=== PATIENT | male | born 1950 | race Caucasian/White ===

== ENCOUNTER → 2020-10-15 | Day surgery (SDC) | payer MEDICARE, OTHER ==
[~2020-10-15] MED LIST: ASPI-630 PO; CHLO25TA9 PO; IPRATRPIUM/ALBUTEROL 0.5/2.5MG 3 ML NEBU. NEB PRN; IV RINGERS SOLUTION,LACTATED 1,000 ML IV SCH; LIDOCAINE 2% PF 5 ML VIAL. ONE; LIPITOR80 MG PO; LOSA100T14 PO; MIDAZOLAM HCL PF 2 MG/2 ML VIAL. IV ONE; ONDANSETRON PF 4 MG/2 ML VIAL. IV PRN; PROPOFOL 10,000 MCG/ML (20ML) VIAL IV ONE
[2020-10-15 11:00] VITALS: BP 127/77
--- NOTE | 2020-10-17 12:08 | PATHOLOGY ---
[facility] Accession Number: [id number] . 01 Material submitted: . PART A: colon - ASCENDING COLON POLYP BIOPSY. Modifiers: ascending PART B: hepatic flexure - HEPATIC FLEXURE HOT SNARE POLYP PART C: rectum - RECTAL POLYP BIOPSY . 01 Clinical history: . COLONOSCOPY HISTORY OF POLYPS . 02 Diagnosis: A. Colon biopsy, ascending colon polyp: - Diminutive tubular adenoma. . B. Colon biopsy, hepatic flexure polyp: - Tubular adenoma. . C. Colorectal biopsy, rectal polyp: - Hyperplastic polyp. LB 10/17/2020 0945 Local . 02 Comment: There is no high grade dysplasia or evidence of malignancy. (JPM/db; 10/17/2020) . 02 Electronically signed: . Nestor Contreras MD, Pathologist NPI- [id number] . 01 Gross description: . A. Received in formalin labeled "Dave Snow, ascending colon polyp" is a fragment of randle-brown soft tissue measuring 0.7 x 0.4 x 0.3 cm. The specimen is submitted entirely in A1. . B. Received in formalin labeled "Gwendolyn, Dave hot snare, hepatic flexure polyp" is a fragment of randle-brown soft tissue measuring 0.9 x 0.5 x 0.4 cm. The surgical resection margin is inked black. The specimen is submitted entirely in B1. . C. Received in formalin labeled "Gwendolyn, Dave rectal polyp biopsy" is a fragment of randle-brown soft tissue measuring 0.4 x 0.3 x 0.3 cm. The specimen is submitted entirely in C1.([facility]; 10/16/2020) . GZA/GZA 10/16/2020 1703 Local . 02 Pathologist provided ICD-10: D12.2, D12.3, K62.1 . 02 CPT . 119817, 732421, 442000 Specimen Comment: A courtesy copy of this report has been sent to [phone], [phone] Specimen Comment: [id number] Specimen Comment: Report sent to / DR PHELAN Performed at: [address] [facility] [address], [place] [id number] MD Elvin Lobo MD Phone: [phone] Performed at: 02 [facility] [place] [address] [place], [place] [id number] MD Nestor Contreras MD Phone: [phone]
== END | disposition home or self-care (01) ==
LOC: SURG 09:04
PROVIDERS: ATTEND Internal Medicine Gastroenterology
DX: Z12.11 Encounter for screening for malignant neoplasm of colon (principal); D12.2 Benign neoplasm of ascending colon; D12.3 Benign neoplasm of transverse colon; K62.1 Rectal polyp; I10 Essential (primary) hypertension; K57.30 Diverticulosis of large intestine without perforation or abscess without bleeding; E78.00 Pure hypercholesterolemia, unspecified; Z86.010 Personal history of colon polyps; Z72.89 Other problems related to lifestyle; Z79.899 Other long term (current) drug therapy; Z79.82 Long term (current) use of aspirin
CPT/HCPCS: 45380; 45385; 88305; J2001; J2704; J7120